=== PATIENT | male | born 1955 | race African-American/Black ===

== ENCOUNTER 2017-07-11 10:27 | Emergency (ER) | payer OTHER ==
[~2017-07-11] VITALS: Wt 118.9 kg
[~2017-07-11 10:27] MED LIST: DICY10CA60 PO; ONDA4TAB14 PO
[2017-07-11] MEDS ORDERED: SOD CHLORIDE 0.9% 1,000 ML IV STA (11:05)
[2017-07-11] MEDS ORDERED: ONDANSETRON 4 MG INJ IV STA (11:05)
[2017-07-11] MEDS ORDERED: morphine 2 MG INJ IV STA (11:05)
[2017-07-11 11:43] LABS: BASOPHILS % 0.1 % (0.0-2.0); EOSINOPHILS % 0.5 % (0.0-7.0); HEMATOCRIT 43.6 % (42.0-52.0); HEMOGLOBIN 14.6 g/dl (14.0-18.0); LYMPHOCYTES # 1.5 10^3/ul (0.8-2.9); LYMPHOCYTES % 19.8 % (15.0-51.0); MEAN CORPUSCULAR HEMOGLOBIN 29.8 pg (29.0-33.0); MEAN CORPUSCULAR HGB CONC 33.5 g/dl (32.0-37.0); MEAN PLATELET VOLUME 8.8 fl (7.4-10.4); MONOCYTE # 0.4 10^3/ul (0.3-0.9); MONOCYTES % 5.2 % (0.0-11.0); NEUTROPHIL # 5.8 10^3/ul (1.6-7.5); NEUTROPHILS % 74.1 % (39.0-77.0); PLATELET COUNT 235 10^3/UL (140-415); WHITE BLOOD COUNT 7.8 10^3/ul (4.8-10.8)
[2017-07-11 12:07] LABS: ALBUMIN 4.1 g/dl (3.3-4.9); ALBUMIN/GLOBULIN RATIO 0.95; BILIRUBIN,INDIRECT 0.5 mg/dl (0-1.1); BILIRUBIN,TOTAL 0.5 mg/dl (0.2-1.3); CALCIUM 9.6 mg/dl (8.4-10.2); CREATININE 1.05 mg/dl (0.61-1.24); POTASSIUM 4.2 mmol/L (3.5-5.1); TOTAL PROTEIN 8.4 g/dl (6.1-8.1)
[2017-07-11] MEDS ORDERED: ACETAMINOPHEN 500 MG TAB PO STA (13:32)
[2017-07-11] MEDS ORDERED: NAPR-688 PO (14:20)
[2017-07-11] MEDS ORDERED: FAMO20TA18 PO (14:20)
[2017-07-11] MEDS ORDERED: ONDA4TAB14 PO (14:20)
[2017-07-11] MEDS ORDERED: POLY17PO6 PO (14:20)
[2017-07-11] MEDS ORDERED: KETOROLAC 30 MG INJ IV STA (14:24)
--- NOTE | 2017-07-11 14:25 | ERD ---
ER Documentation Chief Complaint Chief Complaint ABD PAIN, NAUSEA, STATES ATE "BAD FOOD" LAST NIGHT HPI 62-year-old male complains of bilateral abdominal pain since last night described as a sharp pain located in both the left lateral mid abdomen and the right lateral mid abdomen. Nausea and nonbloody nonbilious vomiting. Believes he ate something bad last night. The pain is not made worse by anything in particular. Fevers. States that he also has a mild frontal headache that is less than the abdominal pain. ROS All systems reviewed and are negative except as per history of present illness. Medications Home Meds Active Scripts Polyethylene Glycol* (Miralax*) 17 Gm Powd.pack, 17 GM PO DAILY for CONSTIPATION , #7 Prov:HARSHASINGH DO 07/11/17 Ondansetron (Ondansetron Odt) 4 Mg Tab.rapdis, 4 MG PO Q6H Y for NAUSEA AND/OR VOMITING, #10 TAB Prov:SINGH MCLEOD DO 07/11/17 Famotidine* (Famotidine*) 20 Mg Tablet, 20 MG PO BID, #60 TAB Prov:HARSHASINGH DO 07/11/17 Naproxen* (Naproxen*) 500 Mg Tablet, 500 MG PO BID Y for PAIN, #20 TAB Prov:HARSHASINGH DO 07/11/17 Discontinued Scripts Ondansetron (Ondansetron Odt) 4 Mg Tab.rapdis, 4 MG PO Q6H Y for NAUSEA AND/OR VOMITING, #30 TAB Prov:EMERSON EMERY MD 06/29/16 Dicyclomine Hcl* (Bentyl*) 10 Mg Capsule, 10 MG PO QID Y for abdominal cramping , #15 CAP Prov:EMERSON EMERY MD 06/29/16 Allergies Allergies: Coded Allergies: No Known Allergy (Unverified , 02/21/14) PMhx/Soc History of Surgery: Yes (L eye 79, Nasal 79, RIGHT ARM 79) Anesthesia Reaction: No Hx Neurological Disorder: No Hx Respiratory Disorders: No Hx Cardiac Disorders: No Hx Psychiatric Problems: No Hx Miscellaneous Medical Probl: No Hx Alcohol Use: Yes Hx Substance Use: No Hx Tobacco Use: Yes Smoking Status: Never smoker Physical Exam Vitals Vital Signs Date Time Temp Pulse Resp B/P Pulse Ox O2 Delivery O2 Flow Rate FiO2 07/11/17 10:29 97.7 65 18 149/93 99 Physical Exam Const: [] No obvious distress. Head: Atraumatic Eyes: Normal Conjunctiva ENT: Normal External Ears, Nose and Mouth. Neck: Full range of motion..~ No meningismus. Resp: Clear to auscultation bilaterally Cardio: Regular rate and rhythm, no murmurs Abd: Soft, mild mid abdominal tenderness on the lateral left and right abdomen without guarding or rebound, non distended. Normal bowel sounds Skin: No petechiae or rashes Ext: No cyanosis, or edema Neur: Awake and alert 3, no focal deficits Psych: Normal Mood and Affect Result Diagram: 07/11/17 1120 07/11/17 1120 Results 24 hrs Laboratory Tests Test 07/11/17 11:20 White Blood Count 7.810^3/ul Red Blood Count 4.9010^6/ul Hemoglobin 14.6g/dl Hematocrit 43.6% Mean Corpuscular Volume 89.0fl Mean Corpuscular Hemoglobin 29.8pg Mean Corpuscular Hemoglobin Concent 33.5g/dl Red Cell Distribution Width 14.0% Platelet Count 94863^3/UL Mean Platelet Volume 8.8fl Neutrophils % 74.1% Lymphocytes % 19.8% Monocytes % 5.2% Eosinophils % 0.5% Basophils % 0.1% Nucleated Red Blood Cells % 0.0/100WBC Neutrophils # 5.810^3/ul Lymphocytes # 1.510^3/ul Monocytes # 0.410^3/ul Eosinophils # 0.010^3/ul Basophils # 0.010^3/ul Nucleated Red Blood Cells # 0.010^3/ul Sodium Level 141mmol/L Potassium Level 4.2mmol/L Chloride Level 107mmol/L Carbon Dioxide Level 27mmol/L Anion Gap 11 Blood Urea Nitrogen 15mg/dl Creatinine 1.05mg/dl Glucose Level 86mg/dl Calcium Level 9.6mg/dl Total Bilirubin 0.5mg/dl Direct Bilirubin 0.00mg/dl Indirect Bilirubin 0.5mg/dl Aspartate Amino Transf (AST/SGOT) 25IU/L Alanine Aminotransferase (ALT/SGPT) 32IU/L Alkaline Phosphatase 76IU/L Total Protein 8.4g/dl Albumin 4.1g/dl Globulin 4.30g/dl Albumin/Globulin Ratio 0.95 Lipase 109U/L Current Medications Medications (Trade) Dose Ordered Sig/Teresita Route PRN Reason Start Time Stop Time Status Last Admin Dose Admin Sodium Chloride (NS) 1,000 ml @ 1,000 mls/hr Q1H STAT IV 07/11/17 11:05 07/11/17 12:04 DC 07/11/17 11:38 Morphine Sulfate (morphine) 2 mg ONCE STAT IV 07/11/17 11:05 07/11/17 11:06 DC 07/11/17 11:38 Ondansetron HCl (Zofran Inj) 4 mg ONCE STAT IV 07/11/17 11:05 07/11/17 11:06 DC 07/11/17 11:38 Acetaminophen (Tylenol Tab) 1,000 mg ONCE STAT PO 07/11/17 13:32 07/11/17 13:33 DC 07/11/17 13:45 Procedures/MDM Abdominal pain possibly secondary to food poisoning. Patient also does demonstrate some signs of drug-seeking behavior as he states that he usually requires something stronger than morphine. However he was given morphine and Toradol with relief of pain. Is also given Zofran and liter of IV fluids. His condition is improved and his vital signs are completely stable. I am discharging him with instructions see primary care doctor next 2 or 3 days. Abdominal x-ray is pending will be read by the oncoming physician. The patient will be discharged as planned. Departure Diagnosis: Primary Impression: Acute abdominal pain Condition: Stable Patient Instructions: Abdominal Pain Referrals: ARSEN SIMONS MD (PCP) Additional Instructions: Call your primary care doctor TOMORROW for an appointment during the next 2-3 days.See the doctor sooner or return here if your condition worsens before your appointment time. SINGH MCLEOD DO Jul 11, 2017 14:25
--- NOTE | 2017-07-11 14:39 | RADRPT ---
PROCEDURE: XR Abdomen. CLINICAL INDICATION: Abdominal pain TECHNIQUE: Supine views of the abdomen were obtained. COMPARISON: None. FINDINGS: The bowel gas pattern is normal. There is no evidence of obstruction. Mildly gas filled segments of small bowel is seen in the central abdomen. The visualized large bowel appears to be stool-filled. N o free intraperitoneal air is seen. There are no abnormal calcifications overlying the urinary trac ts. The osseous structures are unremarkable. IMPRESSION: Nonobstructive bowel gas pattern. Mild gas-filled small bowel in the central abdomen which may represent an ileus. RPTAT: HPNM Physician Jose Date Time Electronically viewed and signed by Physician Jose on 07/11/2017 14:39 /
[2017-07-11 15:25] VITALS: BP 137/80; PULSE 84; RESP 20
--- NOTE | 2017-07-11 15:30 | EN ---
Date/Time of Note Date/Time of Note DATE: 07/11/17 TIME: 15:25 ER Progress Note The patient was signed out to me by Dr. Mistry. This is a 62-year-old male with a history of chronic pain who is presenting with abdominal pain today. His physical exam was reassuring in the emergency department. His blood work was reassuring. Time of signout, the patient was pending the official radiology results of his abdominal x-ray. XR Abdomen FINDINGS: The bowel gas pattern is normal. There is no evidence of obstruction. Mildly gas filled segments of small bowel is seen in the central abdomen. The visualized large bowel appears to be stool-filled. No free intraperitoneal air is seen. There are no abnormal calcifications overlying the urinary tracts. The osseous structures are unremarkable. IMPRESSION: Nonobstructive bowel gas pattern. Mild gas-filled small bowel in the central abdomen which may represent an ileus. Electronically viewed and signed by Physician Jose on 07/11/2017 14 :39 The patient's abdominal exam was reassuring on reevaluation by myself. The patient requested to be discharged. The patient was informed that he may have some decreased bowel activity and that he needs to follow-up with his doctor regarding this. He is given precautions with which to return to the emergency department. At this time, the patient stable for discharge. LILIAN MELVIN MD Jul 11, 2017 15:30
== END 2017-07-11 15:31 | disposition home or self-care (01) ==
LOC: E/R 10:27
DX: R10.9 Unspecified abdominal pain (principal); Z87.891 Personal history of nicotine dependence
CPT/HCPCS: 36415; 74010; 80053; 83690; 85025; 96374; 96375; J1885; J2270; J2405; J7030; Z7502; Z7610

== ENCOUNTER → 2019-05-18 | Emergency (ER) | payer MEDICARE, OTHER ==
[~2019-05-18] VITALS: Ht 188 cm; Wt 113.0 kg
[~2019-05-18] MED LIST changes: -DICY10CA60 PO; +FAMO20TA18 PO; +HYDR-4011 PO; +HYDROCODONE/APAP (5/325) TAB PO ONE; +IBUP-1542 PO; +KETOROLAC 30 MG INJ IM STA; +NAPR-688 PO; +POLY17PO6 PO; +TRAM50TA2 PO
[2019-05-18 08:50] VITALS: BP 152/78; PULSE 87; RESP 16; Ht 188 cm; Wt 113.0 kg
== END | disposition home or self-care (01) ==
LOC: FTE 08:48
DX: S49.91XA Unspecified injury of right shoulder and upper arm, initial encounter (principal); F17.210 Nicotine dependence, cigarettes, uncomplicated; W01.0XXA Fall on same level from slipping, tripping and stumbling without subsequent striking against object, initial encounter; Y92.009 Unspecified place in unspecified non-institutional (private) residence as the place of occurrence of the external cause
CPT/HCPCS: 71250; 73000; J1885; 96372